=== PATIENT | male | born 1955 ===

== ENCOUNTER 2020-06-29 06:55 | Day surgery (SDC) | payer OTHER ==
[2020-06-29] MEDS ORDERED: ALEVE220 M1 PO (15:35)
[2020-06-29] MEDS ORDERED: DUI500 PO (15:35)
[2020-06-29] MEDS ORDERED: PERCOCET 5-3251 EACH PO (15:35)
== END 2020-06-29 16:50 | disposition home or self-care (01) ==
LOC: CIR.AMB 06:55
PROVIDERS: ATTEND Orthopaedic Surgery
DX: M75.121 Complete rotator cuff tear or rupture of right shoulder, not specified as traumatic (principal); M65.811 Other synovitis and tenosynovitis, right shoulder; Z20.822 Contact with and (suspected) exposure to COVID-19